=== PATIENT | female | born 1990 | race Hispanic/Latino ===

== ENCOUNTER 2018-09-01 19:46 | Emergency (ER) | payer OTHER ==
[2018-09-01 20:41] LABS: Urine Bacteria <20 /HPF (<20); Urine Culture Reflex Order NOT NEEDED; Urine RBC <5 /HPF (NONE SEEN)
[2018-09-01 20:49] LABS: Absolute Lymphocytes (CBC) 2.3 K/uL (0.7-4.9); Absolute Monocytes 0.8 K/uL (0.1-1.3); Absolute Neutrophil 8.8 K/uL (1.8-8.0); Basophils % 0.1 % (0-1.3); Eosinophils % 0.9 % (0-4.4); Hematocrit 37.6 % (36.0-45.0); Lymphocytes % 19.1 % (15.3-44.8); MPV 7.6 fL (7.6-11.3); Monocytes % 6.6 % (3.3-12.3); RBC Red Blood Cell Count 4.29 M/uL (3.86-4.86)
[2018-09-01 20:57] LABS: BUN Blood Urea Nitrogen 8 mg/dL (7-18); Bicarbonate 21 mmol/L (21-32); Glucose Level 78 mg/dL (74-106); Potassium 3.2 mmol/L (3.5-5.1); Sodium Level 141 mmol/L (136-145)
[2018-09-01 21:12] LABS: Urine Blood TRACE (NEG); Urine Glucose NEGATIVE (NEG); Urine Protein NEGATIVE (NEG); Urine Specific Gravity 1.015 (1.005-1.030); Urine pH 8.5 (5.0-7.0)
--- NOTE | 2018-09-01 21:55 | EDPHYS ---
Physician Documentation [facility] Name: Raghavendra Fritz Age: 28 yrs Sex: Female : 1990 Arrival Date: 09/01/2018 Time: 19:46 Bed 2 Private MD: ED Physician Nic Garza HPI: 09/01 20:51 This 28 yrs old Female presents to ER via Wheelchair with complaints of rn Breathing Difficulty. 20:52 The patient has shortness of breath at rest. Onset: The symptoms/episode began/occurred rn just prior to arrival. Duration: The symptoms are continuous. The patient's shortness of breath is aggravated by coughing, is alleviated by nothing. Severity of symptoms: At their worst the symptoms were moderate in the emergency department the symptoms have improved. The patient has not experienced similar symptoms in the past. Reports at soccer game, sudden onset of soughing fit, reports feeling short of breath and can't stop coughing, has anxiety per , was fine prior to game, reports mild throat irritation, no rash, no known allergies or knew exposures. NO chest pain. is , 2nd trimester, no vaginal bleeding or leakage of fluid.. 20:52 No hemoptysis, no chest pain, no famhx of cardiac problems, no hx of dvt/pe.. 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 - Social history:: Smoking status: Patient/guardian denies using tobacco. - Ebola Screening: : Patient negative for fever greater than or equal to 101.5 degrees Fahrenheit, and additional compatible Ebola Virus Disease symptoms Patient denies exposure to infectious person Patient denies travel to an Ebola-affected area in the 21 days before illness onset No symptoms or risks identified at this time. - Family history:: not pertinent. - Hospitalizations: : No recent hospitalization is reported. ROS: 20:52 Constitutional: Negative for fever, chills, and weight loss, Eyes: Negative for injury, rn pain, redness, and discharge, ENT: + sore throat Neck: Negative for injury, pain, and swelling, Cardiovascular: Negative for chest pain, and edema, Respiratory: + sob and cough Abdomen/GI: Negative for abdominal pain, nausea, vomiting, diarrhea, and constipation, MS/Extremity: Negative for injury and deformity, Skin: Negative for injury, rash, and discoloration, Neuro: Negative for headache, weakness, numbness, tingling, and seizure. Exam: 20:52 Constitutional: This is a well developed, well nourished patient who is awake, alert, rn hyperventilating and left carpalspasm Head/Face: Normocephalic, atraumatic. Eyes: Pupils equal round and reactive to light, extra-ocular motions intact. Lids and lashes normal. Conjunctiva and sclera are non-icteric and not injected. Cornea within normal limits. Periorbital areas with no swelling, redness, or edema. ENT: MMM, no stridor Neck: Trachea midline, no thyromegaly or masses palpated, and no cervical lymphadenopathy. Supple, full range of motion without nuchal rigidity, or vertebral point tenderness. No Meningismus. Cardiovascular: tachycardic, regular, no murmur Respiratory: + hyperventilating, clear bilateral breath sounds, transmitted upper airway sounds that extinguish with slow open mouth breathing. Abdomen/GI: soft, non-tender Skin: Warm, dry with normal turgor. Normal color with no rashes, no lesions, and no evidence of cellulitis. MS/ Extremity: Pulses equal, no cyanosis. Neurovascular intact. Full, normal range of motion. Equal circumference. Neuro: Awake and alert, GCS 15, oriented to person, place, time, and situation. Cranial nerves II-XII grossly intact. Motor strength 5/5 in all extremities. Sensory grossly intact. Cerebellar exam normal. Normal gait. 21:52 ECG was reviewed by the Attending Physician. rn Vital Signs: 19:52 BP 106 / 65; Pulse 92; Resp 28; Temp 97.8; Pulse Ox 100% on R/A; Weight 58.97 kg; ed1 Height 5 ft. 1 in. (154.94 cm); Pain 5/10; 20:43 BP 128 / 86; Pulse 99; Resp 20; Pulse Ox 100% on R/A; Pain 2/10; aa1 21:30 BP 101 / 68; Pulse 80; Resp 18; Pulse Ox 99% on R/A; aa1 19:52 Body Mass Index 24.56 (58.97 kg, 154.94 cm) ed1 MDM: 19:55 Patient medically screened. rn 20:52 Refusal of service: The patient/guardian displays adequate decision making capability rn and despite a detailed discussion of alternatives, benefits, risks, and consequences refuses: all X-rays. 21:52 Differential diagnosis: Anxiety Reaction Bronchitis pneumonia. Data reviewed: vital rn signs, nurses notes, lab test result(s), EKG, and as a result, I will discharge patient. Counseling: I had a detailed discussion with the patient and/or guardian regarding: the historical points, exam findings, and any diagnostic results supporting the discharge/admit diagnosis, lab results, the need for outpatient follow up, to return to the emergency department if symptoms worsen or persist or if there are any questions or concerns that arise at home. Response to treatment: the patient's symptoms have markedly improved after treatment, the patient's condition has returned to base line, and as a result, I will discharge patient. Special discussion: I discussed with the patient/guardian in detail that at this point there is no indication for admission to the hospital. It is understood, however, that if the symptoms persist or worsen the patient needs to return immediately for re-evaluation. ED course: All tests negative, patient refused xray, no oxygen requirement, normal ecg, back to baseline and unclear etiology of cough. No stridor, and afebrile, strep/flu neg. Will dc home as possible early viral process or sinus/allergies, in conjunction with anxiety/hyperventilation, return precautions given and understood.. 09/01 20:02 Order name: CBC with Diff; Complete Time: 21:52 rn 09/01 20:02 Order name: Basic Metabolic Panel; Complete Time: 21:52 rn 09/01 20:02 Order name: Urine Microscopic Only; Complete Time: 20:51 rn 09/01 20:02 Order name: Flu; Complete Time: 21:52 rn 09/01 20:02 Order name: Strep; Complete Time: 21:52 rn 09/01 20:37 Order name: Urine Dipstick--Ancillary (enter results); Complete Time: 21:52 [facility] 09/01 20:02 Order name: IV Start; Complete Time: 20:45 rn 09/01 20:02 Order name: Urine Dipstick-Ancillary (obtain specimen); Complete Time: 20:23 rn 09/01 20:02 Order name: FHT's; Complete Time: 20:40 rn 09/01 20:02 Order name: EKG; Complete Time: 20:03 rn 09/01 20:02 Order name: EKG - Nurse/Tech; Complete Time: 20:40 09/01 20:37 Order name: Urine --Ancillary (enter results); Complete Time: 21:52 2 09/01 21:06 Order name: Throat Culture EDIA EC:52 Rate is 74 beats/min. Rhythm is regular. QRS [place] is Normal. MS interval is normal. QRS rn interval is normal. QT interval is normal. No Q waves. T waves are Normal. No ST changes noted. Clinical impression: Normal ECG. Interpreted by me. Reviewed by me. Administered Medications: No medications were administered Disposition: 09/01/18 21:55 Discharged to Home. Impression: Cough, Dyspnea, unspecified, Hyperventilation. - Condition is Stable. - Discharge Instructions: Hyperventilation, Shortness of Breath, Cough, Adult, [id number]. - Medication Reconciliation Form, Thank You Letter, Antibiotic Education, Prescription Opioid Use form. - Follow up: Private Physician; When: As needed; Reason: Recheck today's complaints, Re-evaluation by your physician. - Problem is new. - Symptoms are resolved. Signatures: Dispatcher [employer] [facility] Radha Lincoln RN RN aa1 Nic Garza MD MD rn Riggs, Erika, RN RN ed1 Corrections: (The following items were deleted from the chart) 20:36 20:03 Chest Single View+RAD.RAD.BRZ ordered. [facility] 22:07 21:55 09/01/2018 21:55 Discharged to Home. Impression: Cough; Dyspnea, unspecified; aa1 Hyperventilation. Condition is Stable. Forms are Medication Reconciliation Form, Thank You Letter, Antibiotic Education, Prescription Opioid Use. Follow up: Private Physician; When: As needed; Reason: Recheck today's complaints, Re-evaluation by your physician. Problem is new. Symptoms are resolved. rn
--- NOTE | 2018-09-01 21:55 | ER ---
Nurse's Notes [facility] Name: Raghavendra Fritz Age: 28 yrs Sex: Female : 1990 Arrival Date: 09/01/2018 Time: 19:46 Bed 2 Private MD: Diagnosis: Cough;Dyspnea, unspecified;Hyperventilation Presentation: 09/01 19:49 Presenting complaint: states: She had a bad coughing fit then she started ed1 having trouble breathing. Transition of care: patient was not received from another setting of care. Onset of symptoms was September 01, 2018. Risk Assessment: Do you want to hurt yourself or someone else? Patient reports no desire to harm self or others. Initial Sepsis Screen: Does the patient meet any 2 criteria? No. Patient's initial sepsis screen is negative. Does the patient have a suspected source of infection? No. Patient's initial sepsis screen is negative. Care prior to arrival: Medication(s) given: Benadryl about 30 minutes ago. 19:49 Method Of Arrival: Wheelchair ed1 19:49 Acuity: ANTONIO 2 ed1 Triage Assessment: 19:52 General: Appears distressed, Behavior is calm, cooperative. Pain: Complains of pain in ed1 suprapubic area. Respiratory: Reports shortness of breath Onset: The symptoms/episode began/occurred just prior to arrival, the patient has moderate shortness of breath. 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 - Social history:: Smoking status: Patient/guardian denies using tobacco. - Ebola Screening: : Patient negative for fever greater than or equal to 101.5 degrees Fahrenheit, and additional compatible Ebola Virus Disease symptoms Patient denies exposure to infectious person Patient denies travel to an Ebola-affected area in the 21 days before illness onset No symptoms or risks identified at this time. - Family history:: not pertinent. - Hospitalizations: : No recent hospitalization is reported. Screenin:05 Abuse screen: Denies threats or abuse. Denies injuries from another. Nutritional aa1 screening: No deficits noted. Tuberculosis screening: No symptoms or risk factors identified. Fall Risk None identified. Assessment: 20:05 General: Appears in no apparent distress. distressed, Behavior is cooperative, aa1 appropriate for age, anxious. Pain: Complains of pain in abdomen Pain currently is 6 out of 10 on a pain scale. Quality of pain is described as crampy. Neuro: Level of Consciousness is awake, alert, obeys commands, Oriented to person, place, time, situation, Moves all extremities. Full function Speech is normal. Cardiovascular: Heart tones S1 S2 present Capillary refill < 3 seconds Patient's skin is warm and dry. Rhythm is regular. Respiratory: Reports shortness of breath at rest cough that is non-productive, Airway is patent Respiratory effort is unlabored, Respiratory pattern is tachypnea Breath sounds are clear bilaterally. GI: Reports lower abdominal pain, cramping, Patient currently denies constipation, diarrhea, nausea, vomiting. : Reports cramping, Denies burning with urination, discharge, vaginal bleeding. EENT: No signs and/or symptoms were reported regarding the EENT system. Derm: Skin is intact, is healthy with good turgor, Skin is pink, warm \T\ dry. Musculoskeletal: Circulation, motion, and sensation intact. Capillary refill < 3 seconds. 20:23 Reassessment: Pt states she does not wish to have x-ray performed; provider notified. aa1 20:43 Reassessment: Patient appears in no apparent distress at this time. Patient and/or aa1 family updated on plan of care and expected duration. Pain level reassessed. Patient is alert, oriented x 3, equal unlabored respirations, skin warm/dry/pink. Awaiting lab results. 21:29 Reassessment: Patient appears in no apparent distress at this time. Patient and/or aa1 family updated on plan of care and expected duration. Pain level reassessed. Patient is alert, oriented x 3, equal unlabored respirations, skin warm/dry/pink. Awaiting provider reassessment. 22:04 Reassessment: Patient appears in no apparent distress at this time. Patient is alert, aa1 oriented x 3, equal unlabored respirations, skin warm/dry/pink. Discussed d/c \T\ f/u instructions with pt \T\ family; denies questions or concerns at this time Patient denies pain at this time. Patient states feeling better. Vital Signs: 19:52 BP 106 / 65; Pulse 92; Resp 28; Temp 97.8; Pulse Ox 100% on R/A; Weight 58.97 kg; ed1 Height 5 ft. 1 in. (154.94 cm); Pain 5/10; 20:43 BP 128 / 86; Pulse 99; Resp 20; Pulse Ox 100% on R/A; Pain 2/10; aa1 21:30 BP 101 / 68; Pulse 80; Resp 18; Pulse Ox 99% on R/A; aa1 19:52 Body Mass Index 24.56 (58.97 kg, 154.94 cm) ed1 Vitals: 20:41 Heart Tones FHT 144. aa1 ED Course: 19:46 Patient arrived in ED. as 19:51 Triage completed. ed1 19:53 Arm band placed on right wrist. ed1 19:55 Nic Garza MD is Attending Physician. rn 20:05 Radha Lincoln RN is Primary Nurse. aa1 20:05 Patient has correct armband on for positive identification. Placed in gown. Bed in low aa1 position. Call light in reach. air sampling and monitoring on. Pulse ox on. NIBP on. Warm blanket given. 20:31 EKG done, by ED staff, reviewed by Nic Garza MD. aa1 20:42 Initial lab(s) drawn, by ia, sent to lab. Inserted saline lock: 22 gauge in right kj1 antecubital area, using aseptic technique. 22:04 No provider procedures requiring assistance completed. IV discontinued, intact, aa1 bleeding controlled, No redness/swelling at site. Pressure dressing applied. Administered Medications: No medications were administered Outcome: 21:55 Discharge ordered by . rn 22:04 Discharged to home ambulatory, with significant other. aa1 22:04 Condition: good 22:04 Discharge instructions given to patient, significant other, Instructed on discharge instructions, follow up and referral plans. Demonstrated understanding of instructions, follow-up care. 22:07 Patient left the ED. aa1 Signatures: Radha Lincoln, DEBORAH RN aa1 Yanni Ray Roman, MD MD rn Riggs, Erika, RN RN ed1 Lindsay Win kj1
--- NOTE | 2018-09-02 21:03 | EKG ---
Test Date: 2018-09-01 Test Time: 20:30:04 Nurse Midwife/Clinical Instructor: ANDRÉS MEASUREMENT RESULTS: Intervals: Rate: 74 [place]: 158 QRSD: 78 QT: 368 QTc: 408 [place]: P: 32 [place]: 158 QRS: 28 T: 28 INTERPRETIVE STATEMENTS: Normal sinus rhythm Normal ECG No previous ECG available for comparison Electronically Signed On 09-02-18 21:02:55 CDT by Emerson Caraballo
== END 2018-09-01 22:07 | disposition home or self-care (01) ==
LOC: ER 19:46
DX: R05 Cough (principal); R06.00 Dyspnea, unspecified; R06.4 Hyperventilation
CPT/HCPCS: 36415; 80048; 81003; 81015; 81025; 85025; 87070; 87081; 87804; 93005; 99284